=== PATIENT | female | born 1950 | race Caucasian/White ===

== ENCOUNTER 2020-09-05 15:50 | Emergency (ER) | payer MEDICARE ==
[~2020-09-05] VITALS: Ht 160 cm; Wt 86.4 kg
[2020-09-05] MEDS ORDERED: acetaminophen 325mg tablet PO STA (16:31)
[2020-09-05] MEDS ORDERED: normal saline 1000ML IV soln IVB ONE (16:35)
[2020-09-05 17:12] LABS: BASOPHILS % (AUTO) 0.1 % (0-1); HEMATOCRIT 36.7 % (35.0-45.0); HEMOGLOBIN 12.6 g/dl (12.0-16.0); MEAN PLATELET VOLUME 6.5 FL (7.4-10.4); MONOCYTES # (AUTO) 0.5 X10'3 (0-0.9); NEUTROPHILS # (AUTO) 3.8 X10'3 (1.8-7.7); RED BLOOD COUNT 4.07 X10'6 (4.20-5.60)
[2020-09-05 17:13] LABS: EOSINOPHILS % (AUTO) 0.1 % (0-6); LYMPHOCYTES # (AUTO) 0.3 X10'3 (1.1-4.8); LYMPHOCYTES % (AUTO) 6.9 % (21-51); MEAN CORPUSCULAR HEMOGLOBIN 30.9 PG (27.0-31.0); MEAN CORPUSCULAR HGB CONC 34.2 g/dL (33.0-36.5); MEAN CORPUSCULAR VOLUME 90.2 FL (78-98); MONOCYTES % (AUTO) 11.5 % (2-12); NEUTROPHILS % (AUTO) 81.4 % (42-75); PLATELET COUNT 307 X10'3 (140-440); RED CELL DISTRIBUTION WIDTH 12.2 % (11.5-14.5); WHITE BLOOD COUNT 4.7 X10'3 (4.5-11.0)
[2020-09-05 17:20] LABS: ALANINE AMINOTRANSFERASE 34 U/L (12-78); ALBUMIN 2.7 G/DL (3.4-5.0); ALBUMIN/GLOBULIN RATIO 0.6 (1.1-1.5); ALKALINE PHOSPHATASE 95 IU/L (46-116); ANION GAP 13 (8-16); ASPARTATE AMINO TRANSFERASE 68 U/L (10-37); BILIRUBIN,TOTAL 0.4 MG/DL (0.1-1.0); BLOOD UREA NITROGEN 15 MG/DL (7-18); BUN/CREATININE RATIO 14.3 (6.6-38.0); CALCIUM 8.5 MG/DL (8.5-10.1); CHLORIDE 103 MMOL/L (99-107); CREATININE 1.05 MG/DL (0.40-0.90); GLUCOSE 105 MG/DL (70-104); POTASSIUM 3.1 MMOL/L (3.5-5.1); SODIUM 140 MMOL/L (135-145); TOTAL CARBON DIOXIDE 24.5 MMOL/L (24-32); TOTAL PROTEIN 7.1 G/DL (6.4-8.2); eGFR 52 ML/MIN
[2020-09-05] MEDS ORDERED: potassium chloride 10mEq ER tablet PO STA (17:48)
[2020-09-05] MEDS ORDERED: LORazepam 2 mg/ml vial IV ONE (18:05)
[2020-09-05] MEDS ORDERED: LEVO112C4 PO (18:22)
[2020-09-05] MEDS ORDERED: FLUO40CA10 PO (18:22)
[2020-09-05] MEDS ORDERED: PROG100C11 PO (18:22)
[2020-09-05] MEDS ORDERED: ESTR0.5T PO (18:22)
[2020-09-05] MEDS ORDERED: LORA-269 PO (18:22)
[2020-09-05 18:39] LABS: CLARITY,URINE CLEAR (Clear); COLOR,URINE YELLOW (Yellow); GLUCOSE, URINE NEGATIVE (Neg); KETONES,URINE TRACE mg/dl (Neg); LEUKOCYTE ESTERASE ,URINE TRACE (Neg); NITRITES, URINE NEGATIVE (Neg); OCCULT BLOOD,URINE SMALL (Neg); PROTEIN,URINE 100 mg/dl (Neg); UROBILINOGEN,URINE 0.2 E.U/dL (0.2-1.0)
[2020-09-05 18:42] LABS: UA COLLECTION TYPE CLN CATCH MIDSTREAM
[2020-09-05 18:49] LABS: BACTERIA,URINE 1+ /HPF (Neg); RBC,URINE 0-2 /HPF (0-2); SQUAMOUS EPITHELIAL CELL,UR MODERATE /LPF (FEW); WBC,URINE 0-4 /HPF (0-4)
--- NOTE | 2020-09-05 18:55 | NUR ---
JUANI: [phone]
--- NOTE | 2020-09-05 19:15 | NUR ---
I CALLED JUANI, HE WILL BE ON HIS WAY TO COME AND GET HIS MOTHER.
[2020-09-05 19:26] VITALS: BP 122/72
== END 2020-09-05 19:29 | disposition home or self-care (01) ==
LOC: ER 15:51
DX: U07.1 COVID-19 (principal); R19.7 Diarrhea, unspecified; R10.84 Generalized abdominal pain; R50.9 Fever, unspecified; R05 Cough; R06.02 Shortness of breath; I10 Essential (primary) hypertension; Z90.49 Acquired absence of other specified parts of digestive tract; Z79.899 Other long term (current) drug therapy
CPT/HCPCS: 36415; 71045; 80053; 81001; 84145; 85025; 87088; 87502; 87503; 96361; 96374; 99285; J2060; J7030